=== PATIENT | male | born 1985 | race Caucasian/White ===

== ENCOUNTER 2019-12-15 08:57 | Outpatient (CLI) | payer OTHER, SELFPAY ==
--- NOTE | 2019-12-15 | MR_ITS ---
WS: [id number] INDICATION: Tuberous sclerosis TECHNIQUE: MRI of the abdomen without and with gadolinium enhancement. Axial T2, coronal T2, dual Ech o, coronal 2-D fiesta, T1 fat sat, and post gadolinium fat saturation imaging obtained. Some images d egraded by motion artifact. FINDINGS: No available comparison studies. No prior renal imaging available. Normal bilateral renal parenchymal enhancement. No hydronephrosis. Small left renal cyst measuring 7. 8 mm. No enhancing renal parenchymal lesions. No intrahepatic biliary ductal dilatation. Normal gallbladder. Adrenal glands appear normal. Normal s pleen. Normal pancreas. Normal pancreatic duct. Normal caliber abdominal aorta. Incidental fat-contai diogo umbilical hernia. No other significant findings. MR/MR abdomen wo/w con* [id number] IMPRESSION: 1. Small nonenhancing left renal cyst measuring 7.8 mm. No enhancing renal les ions. 2. No other visualized cystic or solid renal parenchymal lesions. No hydroneph rosis. 3. No intrahepatic biliary ductal dilatation. Normal liver. 4. Normal gallbladder and pancreas. 5. Normal caliber abdominal aorta. 6. Incidental fat-containing umbilical hernia.
== END 2019-12-15 08:58 | disposition home or self-care (01) ==
LOC: RADSHAW 08:59
PROVIDERS: PCP Family Medicine; Visit Provider Family Medicine
DX: Q85.1 Tuberous sclerosis (principal); N28.1 Cyst of kidney, acquired; K42.9 Umbilical hernia without obstruction or gangrene
CPT/HCPCS: 74183; A9579

== ENCOUNTER 2020-02-08 09:05 | Outpatient (CLI) | payer OTHER, SELFPAY ==
--- NOTE | 2020-02-08 09:30 | USCV_ITS ---
Jagdishadian Tyler Age: 35 Gender: M : 1985 Exam Date: 02/08/2020 09:27 Ordering Phys: Anne-Marie Hazel MD ([email or web address]) Technologist: Isidro Jimenez Exam Location: [facility] [place] Indication: SOB BP: 125 / 71 HR: 84 Rhythm: Sinus Technical Quality: Good MEASUREMENTS (Male / Female) Normal Values 2D ECHO LV Diastolic Diameter PLAX 5.0 cm 4.2 - 5.9 / 3.9 - 5.3 cm LV Systolic Diameter PLAX 3.8 cm IVS Diastolic Thickness 1.0 cm 0.6 - 1.0 / 0.6 - 0.9 cm IVS Systolic Thickness 1.2 cm LVPW Diastolic Thickness 0.8 cm 0.6 - 1.0 / 0.6 - 0.9 cm LVPW Systolic Thickness 1.4 cm LVOT Diameter 2.1 cm LV Ejection Fraction 2D Teich 44.1 % LV Ejection Fraction MOD 2C 63.4 % LV Ejection Fraction 2C AL 64.7 % LA Diameter 3.5 cm LA Width 4.3 cm LA Height 5.9 cm RA Width 3.3 cm RA Height 5.0 cm Aorta at Sinotubular Diameter 0.9 cm M-MODE LV Diastolic Diameter MM 5.7 cm 4.2 - 5.9 / 3.9 - 5.3 cm LV Systolic Diameter MM 4.0 cm LV Ejection Fraction MM Teich 58.1 % IVS Diastolic Thickness MM 1.1 cm 0.6 - 1.0 / 0.6 - 0.9 cm IVS Systolic Thickness MM 1.3 cm LVPW Diastolic Thickness MM 1.1 cm 0.6 - 1.0 / 0.6 - 0.9 cm LVPW Systolic Thickness MM 1.8 cm RV Diastolic Diameter MM 1.6 cm Aortic Annulus Diameter 3.1 cm LA Ao Ratio MM 1.3 MV E Point Septal Separation 1.1 cm DOPPLER AV Peak Velocity 122.0 cm/s LVOT Peak Velocity 102.0 cm/s AV Area Cont Eq vti 3.0 cm squared AV Area Cont Eq pk 2.8 cm squared MV Area PHT 5.0 cm squared Mitral E to A Ratio 1.9 MV E' Velocity 49.5 cm/s Mitral E to MV E' Ratio 5.7 Mitral E to LV E' Lateral Ratio 5.3 Mitral E to LV E' Septal Ratio 6.2 TR Peak Velocity 175.0 cm/s TR Peak Gradient 12.3 mmHg TV Peak E Velocity 137.0 cm/s Right Atrial Pressure 3.0 mmHg Pulmonary Artery Systolic Pressu 15.3 mmHg PV Peak Velocity 105.0 cm/s FINDINGS Left Ventricle Normal left ventricular size, systolic function and wall thickness, with no regional wall motion abnormalities. Left ventricular ejection fraction is estimated at 55 %. Normal diastolic function. Right Ventricle Normal right ventricular size and systolic function. Right ventricular systolic pressure 15.3 mmHg. Right Atrium Normal right atrial size. Right atrial pressure estimated at 3 mmHg. Left Atrium Upper normal left atrial size. Mitral Valve Structurally normal mitral valve. No mitral valve stenosis. Trace mitral valve regurgitation. Aortic Valve Structurally normal trileaflet aortic valve. No aortic valve stenosis. No aortic valve regurgitation. Tricuspid Valve Structurally normal tricuspid valve. No tricuspid valve stenosis. Trace tricuspid valve regurgitation. Pulmonic Valve Structurally normal pulmonic valve. No pulmonary valve stenosis. Trace pulmonary valve regurgitation. Pericardium No pericardial effusion. Aorta Normal size aortic root and proximal ascending aorta. CONCLUSIONS 1. Normal left ventricular size, systolic function and wall thickness, with no regional wall motion abnormalities. Left ventricular ejection fraction is estimated at 55 %. Normal diastolic function. 2. Normal right ventricular size and systolic function. 3. Normal pulmonary artery pressure. 4. No significant valvular abnormality. 5. When compared to previous echocardiogram dated 12/03/2017, left ventricle systolic function may have improved somewhat. There is no evidence of pericardial effusion. Anne-Marie Hazel MD (Electronically Signed) Final Date: 08 February 2020 18:28 S
== END 2020-02-08 09:06 | disposition home or self-care (01) ==
LOC: US 09:07
PROVIDERS: PCP Family Medicine; Visit Provider Internal Medicine Cardiovascular Disease
DX: I51.9 Heart disease, unspecified (principal); R00.2 Palpitations; R06.02 Shortness of breath
CPT/HCPCS: 93306

== ENCOUNTER → 2022-02-13 10:23 | Outpatient (BNVA) | payer OTHER, SELFPAY | PROVIDERS: PCP Family Medicine; Visit Provider Orthopaedic Surgery | DX: M48.062 Spinal stenosis, lumbar region with neurogenic claudication (principal) | CPT/HCPCS: 72110 ==

== ENCOUNTER 2022-02-13 16:38 | Outpatient (CLI) | payer OTHER, SELFPAY ==
--- NOTE | 2022-02-13 16:30 | MR_ITS ---
WS: [id number] MRI LUMBAR SPINE NONCONTRAST TECHNIQUE: Sagittal T1, T2 and STIR imaging. Axial T1 and T2 imaging. CLINICAL INFORMATION: pain COMPARISON: None. FINDINGS: Mild lumbar curve. No acute compression. Central and LEFT pericentral disc extrusion L5-S1 with cauda l migration of disc material. Disc material measures approximately 7 x 13 mm AP by craniocaudal. L1-L2: Mild annular bulging. Slight effacement of ventral thecal sac. Mild facet arthropathy. Spinal canal and foramen are patent. L2-L3: Tiny LEFT foraminal protrusion. Mild LEFT foraminal narrowing. Mild facet arthropathy. L3-L4: Mild annular bulging. Slight effacement of ventral thecal sac. Mild LEFT and no significant RI GHT foraminal narrowing. L4-L5: Shallow central disc protrusion. Slight effacement of ventral thecal sac. Small annular fissur e. Mild LEFT greater than RIGHT foraminal narrowing. Mild facet arthropathy. L5-S1: Central and LEFT pericentral disc extrusion. Caudal migration of disc material. Moderate impin gement on the thecal sac. Impingement traversing LEFT S1 and S2 nerve roots. Mild LEFT foraminal narr owing. Mild facet arthropathy. Small LEFT renal cortical cyst. Visualized pelvic bony structures: Normal. Paravertebral soft tissues: Normal. MR/MR lumbar spine wo con* [id number] IMPRESSION: 1. Mild lumbar curve. No acute compression. 2. LEFT L5-S1 central and pericentral disc extrusion with caudal migration of disc material. Impingement traversing LEFT S1 and S2 nerve roots in the subarti cular recess. Moderate impingement on the thecal sac. Disc material measures 7 x 13 mm. Mild LEFT L5-S1 foraminal narrowing. 3. Tiny shallow central protrusion L4-L5 with a small annular fissure.
== END 2022-02-13 16:39 | disposition home or self-care (01) ==
LOC: RAD 16:40
PROVIDERS: PCP Family Medicine; Visit Provider Orthopaedic Surgery
DX: M51.26 Other intervertebral disc displacement, lumbar region (principal)
CPT/HCPCS: 72148

== ENCOUNTER 2022-03-07 11:48 | Day surgery (SDC) | payer OTHER, SELFPAY ==
[2022-03-06 13:50] VITALS: BMI 27.3
[2022-03-07] VITALS (7 sets, daily range): BP systolic 110–145; BP diastolic 86–94; PULSE 73–120; RESP 16–24; TEMP 36.6; O2SAT 95–100
--- NOTE | 2022-03-07 | XR_ITS ---
WS: [id number] INTRAOPERATIVE TECHNIQUE: 3 Spot fluoroscopic images for intraoperative purposes. FLUOROSCOPY TIME: ? seconds CLINICAL INFORMATION: left sided L5-s1 decompression COMPARISON: None. FINDINGS: Localization marker over the LEFT L5-S1 level posteriorly. XR/XR lumbar spine 2-3V* [id number] IMPRESSION: Images obtained for intraoperative purposes.
[2022-03-07] MEDS: sodium chloride 0.9% 1,000 ML 30 ML IV (12:00)
--- NOTE | 2022-03-07 12:07 | P.ANESASSM_ITS ---
Pre-Anesthetic Assessment Height/Weight: Height 1.7 m Weight 79.379 kg Preop Diagnosis: Herniated nucleus pulposus to the left of L5-S1, lumbosacral radiculopathy Operation Date: 03/07/22 13:20 Proposed Procedures p Discectomy L5/S1 38120/M48.062(Not Applicable) - Ramirez Trevino, DO Familial anesthetic complications: None Was Beta Evelina taken within 24 hours: N/A Was Clonidine taken within 24 hours: N/A Last intake: > 8hrs Social No alcohol and No tobacco Exam alert, oriented x 3, clear to auscultation bilaterally and regular rate & rhythm Airway Mallampati: Class I Dentition: full CV/HEM Palpitations Metabolic Thyroid Disease Anesthetic Plan ASA status: 2 Anesthesia: General Risk of > 500 ml blood loss (7ml/kg in children): No Medications/Allergies Allergies Allergy/AdvReac Type Severity Reaction Status Date / Time No Known Allergies Allergy Verified 02/20/22 11:04 [facility] Anesthesia Medical History Hyperthyroidism Left ventricular systolic dysfunction Surgical History S/P adenoidectomy S/P brain surgery Tumor Social History Smoking and tobacco status: former smoker Quit status (tobacco): has quit using tobacco Alcohol intake: current Alcohol intake frequency: holidays/special occasions only Data Anesthesia Cardiac Studies: Echocardiogram Ultrasound 02/08/20
--- NOTE | 2022-03-07 12:09 | P.HP_ITS ---
Providers/Chief Complaint Primary Care Provider: Angelo Haile MD Chief Complaint: DISCECTOMY L5/S1 47221 History of Present Illness Tyler Edwards is a 37 year old male has been having 8 weeks of pain without any relief.? Has had multiple steroids.? Patient has been laying down cannot move cannot sit up because of the pain.? At this point my plan is to do a left L5-S1 microdiscectomy.? Review of Systems General: Reports: 10 or more systems reviewed and unremarkable except in HPI and below Const: Denies: fever(s), chills or body aches Card: Denies: chest pain or orthopnea Resp: Denies: dyspnea, productive cough or wheezing GI: Denies: abdominal pain, nausea or vomiting Musc: Reports: back pain and extremity pain Skin/Breast: Denies: changes in skin color or dry skin Neuro: Denies: numbness in extremities or weakness in extremities Psych: Denies: anxiety Ryan/Lymph: Denies: easy bruising or easy bleeding Medications/Allergies Allergies Allergy/AdvReac Type Severity Reaction Status Date / Time No Known Allergies Allergy Verified 02/20/22 11:04 PFSH Acute PFSH: Medical History Hyperthyroidism Left ventricular systolic dysfunction Surgical History S/P adenoidectomy S/P brain surgery Tumor Social History Smoking and tobacco status: former smoker Quit status (tobacco): has quit using tobacco Alcohol intake: current Alcohol intake frequency: holidays/special occasions only Vitals/I&O/Wt Weight last 48 hrs Weight 175 lb Physical Exam Narrative: CONSTITUTIONAL: The patient is a normal appearing [] in no apparent distress. GENERAL: Patient in no acute distress. CARDIAC: Regular rate and rhythm. CHEST: Normal inspiratory effort, normal respiratory rate. ABDOMEN: Soft and nontender. SKIN: Clear, warm and intact. NEURO?PSYCH: The patient is alert and oriented to person, place and time. Sensorv /SILT Motor StrengthShoulder abduction C5 5/5Wrist extension C6 5/5Elbow extension C7 5/5Hand General Ledger Accountant C8 5/5Finger abduction T15/5 Radial/ Ulnar/ Median n intact LowerSensory (SILT)Motor StrengthHin flexion L2/3Ant/inner thigh 5/5Hip adduction L2/3 5/5Knee extension L4 Lat thigh, 5/5Toe dorsiflexion L5 5/5Ankle dorsiflexion L5/ C58Xkehkdd flexion S1 5/5 DTRBleeps 2+Triceps 2+Brachioradialis 2+Patellar 2+Achilles 2+ MUSCULOSKELETAL: [] UPPEREXTREMITIES: The patient had full active ROM in fingers, wrist, elbow, and shoulder. The patient demonstrated ability to fully flex/extend/abduct/adduct fingers, make ok sign, cross 2nd/3rd digits, extend 1st digit fully.. Radial pulse 2+, CR<2 seconds. LOWER EXTREMITIES: Pt has full, active ROM of toes, ankle, knee, and hip. Dorsalis pedis/posterior tibialis pulses 2+, CR<2 seconds. SPINE: Skin warm, dry, intact. A&P Assessment and plan (1) Lumbar stenosis with neurogenic claudication: L5/S1 discectomy Attestations Medical Necessity Statement*: failed conservative tx Coding Level of Care Code Acute Office Machines Teacher for Chg Fwd Diagnoses Lumbar stenosis with neurogenic claudication M48.062
[2022-03-07] MEDS: ceFAZolin 2,000 MG in sodium chloride 0.9% (plus) 50 ML 100 MG IV (12:32)
--- NOTE | 2022-03-07 14:41 | PM.OP ---
Operative Report Date of procedure: March 07, 2022 Pre-op diagnosis: Preop Diagnosis Herniated nucleus pulposus to the left of L5-S1, lumbosacral radiculopathy Post-op diagnosis: same Procedure done: 1. L5/S1 laminectomy with partial facetectomy and partial diskectomy Surgeon: Ramirez Trevino Solar Energy Specialist: Willie Dhaliwal Solar Energy Specialist: The surgical coordinator, Willie Dhaliwal, PAC was needed for his expertise under the microscope. He was important and necessary throughout the procedure to complete in a safe and timely manner. He assisted with patient positioning prepping and draping tissue retraction suctioning of the operative field protection of the dural sac and tissue closure Estimated blood loss (mL): 25 Procedure: 1. L5/S1 laminectomy with partial facetectomy and partial diskectomy Patient is brought to the operative suite. After undergoing anesthesia they are placed in the prone position. All areas of impingement are well padded. Patient is then prepped and draped in the normal sterile fashion. A skin incision is made over the L5-S1 level. This is confirmed under c-arm guidance. A series of dilators are passed and the tubular retractor is docked on the L 5 lamina. A bovie is used to clear the soft tissue off the lamina and the L 5 S1 facet joint. A high speed mar is then used to perform the laminectomy and take down the medial aspect of the L 5 S1 facet joint. A kerrison rongeure was then used to take down the remaining lamina and smooth the edge of the laminectomy up to the point where the ligamentum flavum attaches. Attention was then brought to the medial aspect of the facet joint. The remaining medial aspect of the superior and inferior aspect of the facet joint were taken down with the kerrison from the pedicle of L 5 to S1. The facet joint had significant hypertrophy. Attention was then brought to the Ligamentum Flavum. The ligament was taken down from the lamina of L 5 to S1 and out medially to the remaining facet joint. The ligament was thick. The dura was then exposed. The dura was in good repair. The L 5 nerve was then traced with a curette out the L 5 S1 foramen and found to be adequately decompressed. The nerve had significant mount of scar tissue and fat. Per this seems to be attached to this nerve root. This can also be a nerve root variant that branched off along the S1 nerve. The S1 nerve was traced with a curette around the S1 pedicle. The lateral recess was opened with a kerrison helping to further decompress the S1 nerve. Wound is then irrigated copiously with saline and surgiflo is used to stop any bleeding. The tubular retractor is removed and the wound is closed with vicryl and monocryl suture. Glue is then used to protect the wound. A sterile dressing is then placed. Patient was then placed in the supine position and transferred to the PACU in stable condition.
--- NOTE | 2022-03-07 16:32 | ANE.PACU2 ---
Inpatient post-anesthesia follow up: Airway intact: Yes Vital signs: Temperature 97.9 F Pulse Rate 75 Respiratory Rate 16 Blood Pressure 144/91 Pulse Oximetry 97 Oxygen Delivery Me thod Room Air Oxygen Flow Rate 10 Fraction of Inspir ed Oxygen Hydration adequate: Yes Nausea and vomiting: No Pain level: 1 Mental status: Baseline
== END 2022-03-07 15:20 | disposition home or self-care (01) ==
PROVIDERS: PCP Family Medicine; Visit Provider Orthopaedic Surgery
PROC: (CPT 63030; principal; 2022-03-07 13:10)
DX: M48.062 Spinal stenosis, lumbar region with neurogenic claudication (principal); M51.17 Intervertebral disc disorders with radiculopathy, lumbosacral region; E03.9 Hypothyroidism, unspecified; Z87.891 Personal history of nicotine dependence
CPT/HCPCS: 63030; 72100; 76000; J0330; J0690; J1100; J1170; J2250; J2405; J2704; J2710; J3010; J3490; J7030

== ENCOUNTER 2022-04-09 12:14 | Emergency (ER) | payer OTHER, SELFPAY ==
[2022-04-09 12:15] VITALS: BP 126/79; PULSE 103; RESP 18; TEMP 37.1; O2SAT 95; BMI 26.6
--- NOTE | 2022-04-09 12:26 | W.ED.EXTPRO ---
HPI - Extremity Problem General: Chief complaint: Extremity Injury, Lower Stated complaint: left foot swelling, 4 weeks post op Time Seen by Provider: 04/09/22 12:21 Source: patient Mode of arrival: ambulatory Limitations: no limitations History of Present Illness: Patient is a 37-year-old male who presents to ED today with a complaint of left foot swelling and pain over the past 4 weeks. Patient states symptoms began following a L5/S1 laminectomy with partial facetectomy and partial diskectomy performed by Dr. Trevino. Patient states he has followed up with Dr. Trevino and mentioned it to him. Patient has been elevating and wearing compression gear to help with swelling. Patient states he is not having any pain in the leg. His back pain has improved. He has not noticed any swelling, redness, or pain to his calf although later when I mention this he said possibly some calf pain? Patient is not having any numbness, tingling, loss of sensation to the extremity or foot. He has not noticed any color/temperature changes. MD Complaint: extremity swelling (L foot) Onset (ago): week(s) Pain Consistency: constant Location: left and lower extremity (foot) Radiation: none Relieving factors: other (elevation/compression) Exacerbating factors: walking Associated symptoms: Reports no associated symptoms; Deny chest pain Context: recent surgery/procedure (back ) Review of Systems Card: Denies: chest pain Resp: Denies: dyspnea Musc: Reports: extremity pain (L foot) and extremity swelling (L foot); Denies: back pain, joint pain, joint swelling, joint redness, joint warmth, joint stiffness, limited range of motion, muscle cramps, muscle weakness or decrease in muscle mass Neuro: Denies: numbness in extremities, weakness in extremities or sensory changes [facility] ED PFSH: Medical History Hyperthyroidism Left ventricular systolic dysfunction Surgical History S/P adenoidectomy S/P brain surgery Tumor Social History Smoking and tobacco status: former smoker Quit status (tobacco): has quit using tobacco Alcohol intake: current Alcohol intake frequency: holidays/special occasions only Physical Exam Const: COMMON NORMALS: no acute distress, average body habitus, patient oriented x3, no limitations, healthy appearing, alert and well nourished Back/Pelvis: COMMON NORMALS: thoracic and lumbar spine normal to inspection, no thoracic nor lumbar tenderness, thoraco-lumbar ROM normal and straight leg raise negative bilaterally Extremity: COMMON NORMALS: normal to inspection, full ROM, capillary refill normal and no calf tenderness GENERAL: Yes normal exam except as noted LEFT LOWER EXTREMITY: Yes foot & digits (TTP plantar medial arch) Left foot and digits: Yes ROM (normal) and Yes neurovascular exam (normal) Neuro: COMMON NORMALS: patient oriented x3, moves all extremities, no focal motor deficits and no sensory deficits noted SENSORIUM/ORIENTATION: Yes alert Skin: COMMON NORMALS: no rashes or lesions noted GENERAL SKIN EXAM: no rashes or lesions noted Course Vital Signs: Vital signs: Vital Signs Temperature 98.7 F 04/09/22 12:15 Pulse Rate 86 04/09/22 13:46 Respiratory Rate 14 04/09/22 13:46 Blood Pressure 126/79 04/09/22 12:15 Pulse Oximetry 99 04/09/22 13:46 Oxygen Delivery Me thod 04/09/22 13:46 MDM - Extremity (Nontraumatic) Medical Decision Making Foot is warm to touch with intact/normal pulses/cap refill and sensation. He seems to have most discomfort to his medial arch. I do not appreciate much swelling. Because of some possible calf pain and recent surgery, ultrasound was obtained. This was negative for DVT. No signs of infection. Question whether the foot swelling has anything to do with his recent procedure. We will have him follow-up with podiatry for further evaluation as symptoms have been present for 4 weeks without improvement. Discharge Plan Discharge Patient Disposition: Home Clinical Impression: Swelling of left foot Condition: Stable Discharge Orders: Discharge ED (Routine); Ordered 04/09/22 Ordered By: Emily Goldstein Referrals: Angelo Haile MD [Primary Care Provider] - Coding Level of Care Code ED Purifying Plant Operator for Gracy Sanchez
--- NOTE | 2022-04-09 12:41 | USCV_ITS ---
Tyler Edwards Age: 37 Gender: M : 1985 Exam Date: 04/09/2022 13:16 Ordering Phys: Emily Goldstein Technologist: Isidro Jimenez [place] [facility] [place]ication: lt leg pain and swelling PROCEDURES: Venous duplex imaging was performed in only the left lower extremity. The following venous structures were evaluated: common femoral vein, profunda vein, proximal portion of the greater saphenous vein, superficial femoral vein, and the popliteal vein. In addition, the posterior tibial and peroneal trunk were evaluated. On the left side, the common femoral, superficial femoral, profunda femoral, popliteal, posterior tibial, greater saphenous veins, and the peroneal trunk were identified and interrogated in the standard fashion. These veins were found to be easily compressible with spontaneous blood flow. No evidence of insufficiency or thrombus noted. FINDINGS: Normal 2-D Doppler and augmentation and compressibility throughout the lower extremity venous structures. Additional imaging through the proximal calf veins also reveals no thrombus. Limited evaluation of the greater saphenous vein is patent with no thrombus. CONCLUSIONS No DVT left lower extremity. Dr. Deysi Etienne DO (Electronically Signed) Final Date: 09 April 2022 13:37 S
[2022-04-09 13:46] VITALS: PULSE 86; RESP 14; O2SAT 99
--- NOTE | 2022-04-10 13:34 | DCPLANNER ---
Addendum entered by Radha Lyman 05/18/22 07:30: Patient had a follow up appointment with Dr. Ramirez at podiatry - patient did attend appointment. Addendum entered by Radha Lyman 04/11/22 11:30: Patient has a follow up appointment scheduled with ortho for Saturday, April 23, 2022 at 9:[address] Ramirez. Clinic will call patient with appointment information. Original Note: cytology laboratory manager had message to schedule a follow up appointment for patient with podiatry. cytology laboratory manager sent patients information to the front office staff at podiatry. Patients information will be printed and reviewed. Clinic will call patient with appointment information.
== END 2022-04-09 14:09 | disposition home or self-care (01) ==
PROVIDERS: Emergency Provider Physician Assistant; PCP Family Medicine
DX: M79.89 Other specified soft tissue disorders (principal); Z87.891 Personal history of nicotine dependence
CPT/HCPCS: 93971; 99284

== ENCOUNTER → 2022-04-23 08:55 | Outpatient (BNVA) | payer OTHER, SELFPAY | PROVIDERS: PCP Family Medicine; Visit Provider Podiatrist Foot & Ankle Surgery | DX: M79.672 Pain in left foot (principal); R29.898 Other symptoms and signs involving the musculoskeletal system; M25.372 Other instability, left ankle | CPT/HCPCS: 73630 ==

== ENCOUNTER 2022-04-23 10:13 | Outpatient (CLI) | payer OTHER, SELFPAY | END 2022-04-23 10:14 | disposition home or self-care (01) | LOC: SPT 10:14 | PROVIDERS: PCP Family Medicine; Visit Provider Podiatrist Foot & Ankle Surgery | DX: Z46.89 Encounter for fitting and adjustment of other specified devices (principal); M25.372 Other instability, left ankle; R29.898 Other symptoms and signs involving the musculoskeletal system | CPT/HCPCS: 97760; L1902 ==

== ENCOUNTER 2023-07-12 15:27 | Outpatient (CLI) | payer OTHER, SELFPAY ==
--- NOTE | 2023-07-12 15:45 | US_ITS ---
WS: [id number] ULTRASOUND SOFT TISSUES third intertarsal space HISTORY: to eval Bhat's neuroma at left third interspace COMPARISON: Foot radiograph 04/23/2022 TECHNIQUE: 2-D and color Doppler imaging is submitted. In the third intertarsal space there is a hypoechoic irregular shaped region measuring 5 x 3 mm. Ther e is no increased vascularity. No adjacent fluid or bursitis. IMPRESSION: Subtle hypoechoic nodule in the third intertarsal space. Indeterminate but suspicious for small Morto n's neuroma measuring 5 x 3 mm.
== END 2023-07-12 15:28 | disposition home or self-care (01) ==
LOC: RAD 15:28
PROVIDERS: PCP Family Medicine; Visit Provider Podiatrist Foot & Ankle Surgery
DX: M79.672 Pain in left foot (principal); G57.62 Lesion of plantar nerve, left lower limb
CPT/HCPCS: 76882